=== PATIENT | female | born 1955 | race Caucasian/White ===

== ENCOUNTER 2017-06-20 08:09 | Emergency (ER) | payer BC ==
[2017-06-20] MEDS ORDERED: Ondansetron INJ* 2 MG/ML VIAL IV ONE (08:30)
[2017-06-20] MEDS ORDERED: Ketorolac INJ* 30 MG/ML 1 ML VIAL IV ONE (08:30)
[2017-06-20] MEDS ORDERED: Morphine INJ* 4 MG/ML 1 ML CARPUJECT IV ONE (08:37)
[2017-06-20] MEDS ORDERED: NS 0.9% 1000 ML* 1,000 ML IV ONE (08:57)
[2017-06-20] MEDS ORDERED: Ketorolac INJ* 30 MG/ML 1 ML VIAL ONE (09:01)
[2017-06-20 09:02] LABS: Hematocrit 41 % (35-47); Hemoglobin 13.8 g/dl (12.0-16.0); Mean Corpuscular HGB Conc 33 g/dl (31-36); Mean Corpuscular Hemoglobin 28 pg (27-31); Mean Corpuscular Volume 84 fL (80-97); Mean Platelet Volume 8 um3 (7.4-10.4); Red Blood Count 4.94 10^6/ul (4.0-5.4); Red Cell Distribution Width 13 % (10.5-15); White Blood Count 7.9 10^3/ul (3.5-10.8)
[2017-06-20] MEDS ORDERED: Ketorolac INJ* 30 MG/ML 1 ML VIAL IV PUSH ONE (09:02)
[2017-06-20 09:07] LABS: Urine Bacteria 1+ (Absent); Urine Bilirubin Negative (Negative); Urine Glucose Negative (Negative); Urine Nitrite Negative (Negative)
[2017-06-20 09:18] LABS: ALT 12 U/L (7-52); AST 14 U/L (13-39); Albumin 4.6 g/dL (3.2-5.2); Alkaline Phosphatase 79 U/L (34-104); Anion Gap 9 mmol/L (2-11); BUN/Creatinine Ratio 18.8 (8-20); Blood Urea Nitrogen 18 mg/dL (6-24); C Reactive Protein < 1.00 mg/L (< 5.00); CO2 Carbon Dioxide 25 mmol/L (22-32); Calcium 9.8 mg/dL (8.6-10.3); Chloride 103 mmol/L (101-111); Creatine Kinase 70 U/L (10-223); EGFR Non-African American 59.1 (>60); Globulin 2.7 g/dL (2-4); Glucose 115 mg/dL (70-100); Lipase 17 U/L (11.0-82.0); Potassium 3.8 mmol/L (3.5-5.0); Sodium 137 mmol/L (133-145); Total Protein 7.3 g/dL (6.4-8.9)
--- NOTE | 2017-06-20 09:23 | RAD ---
INDICATION: Abdominal pain. COMPARISON: Comparison is made with a prior CT of the abdomen and pelvis from September 26, 2013. TECHNIQUE: A CT scan of the abdomen and pelvis was performed without intravenous or oral contrast. Contiguous axial sections were obtained from the lung bases through the symphysis pubis. Images were reconstructed in the coronal and sagittal planes. FINDINGS: There is a 0.7 cm calcified nodule in the right lower lobe most consistent with old granulomatous disease. The lung bases are otherwise clear. No pleural effusion is present. The liver and spleen are normal in size. There are several fluid density lesions present within the liver measuring up to 1.9 cm in size which have increased slightly in size from the prior exam suggestive of cysts or hemangiomas. In addition, there is a larger solid appearing hypodense lesion in the medial segment of the left hepatic lobe measuring 2.2 cm in size which has increased in size from the prior study previously measuring breast 1.7 cm in size. No calcified gallstones are seen. The pancreas appears to be within normal limits. The adrenal glands appear to be within normal limits. No renal calculi are seen. There is dilatation of the right renal calyces, pelvis and ureter to the level of the ureterovesical junction.] In that region there appears to be a 0.5 cm calculus which causes moderate hydronephrosis. The aorta is normal in caliber without significant calcific plaque. No significant enlarged retroperitoneal lymph nodes are seen. The stomach, small and large bowel appear nondistended. The appendix is enlarged without inflammatory change and appears similar to the prior exam. There is mild descending and sigmoid diverticulosis without evidence for diverticulitis. The uterus is enlarged with multiple calcifications consistent with fibroids. There is a cystic lesion in the right ovary measuring 3.9 x 3.2 cm in size. There was a cystic area in the right ovary on the prior study measuring 2.6 x 2.8 cm in size. No free intraperineal air or fluid is seen. No significant focal osseous abnormality is seen. IMPRESSION: 1. 5 MM CALCULUS AT THE RIGHT URETEROVESICAL JUNCTION CAUSING MODERATE HYDRONEPHROSIS. 2. SOLID HEPATIC LESION INCREASED IN SIZE FROM THE PRIOR EXAM RECOMMEND AN MRI OF THE LIVER WITHOUT AND WITH CONTRAST FOR FURTHER EVALUATION. THERE ARE ADDITIONAL SMALLER CYSTIC LESIONS POSSIBLY REPRESENTING CYSTS OR HEMANGIOMAS. 3. ENLARGED APPENDIX WITHOUT EVIDENCE FOR INFLAMMATORY CHANGE, UNCHANGED FROM THE PREVIOUS STUDY. 4. 3.9 CM CYSTIC LESION WITHIN THE RIGHT OVARY RECOMMEND A FOLLOW-UP OUTPATIENT PELVIC ULTRASOUND FOR FURTHER EVALUATION. 5. FIBROID UTERUS.
[2017-06-20] MEDS ORDERED: Tamsulosin CAP* 0.4 MG PO ONE (10:29)
[2017-06-20 11:10] VITALS: BP 122/75
--- NOTE | 2017-06-20 18:24 | ED ---
Low Renae Alfonso, scribed for Sheng Swan MD on 06/20/17 at 0834 . Abdominal Pain/Female - HPI Summary HPI Summary: This patient is a 62 year old F presenting to [facility] accompanied by daughter with a chief complaint of right flank pain since 3 days ago. The patient rates the pain 8/10 in severity. Symptoms aggravated by movement. Symptoms alleviated by nothing. Patient reports nausea, vomiting, and dysuria. - History of Current Complaint Chief Complaint: EDAbdPain Stated Complaint: KIDNEY PAIN Time Seen by Provider: 06/20/17 08:27 Hx Obtained From: Patient Onset/Duration: Gradual Onset, Lasting Days, Still Present Timing: Constant Severity Currently: Severe Pain Intensity: 8 Pain Scale Used: 0-10 Numeric Location: Flank - R Aggravating Factor(s): Movement Alleviating Factor(s): Nothing Associated Signs and Symptoms: Positive: Urinary Symptoms - Dysuria, Nausea, Vomiting Allergies/Adverse Reactions: Allergies Allergy/AdvReac Type Severity Reaction Status Date / Time seaweed Allergy Rash Uncoded 06/20/17 08:12 PMH/Surg Hx/FS Hx/Imm Hx Endocrine/Hematology History: Denies: Hx Diabetes, Hx Thyroid Disease Cardiovascular History: Denies: Hx Hypertension Respiratory History: Denies: Hx Asthma, Hx Chronic Obstructive Pulmonary Disease (COPD) GI History: Reports: Other GI Disorders - see above Denies: Hx Ulcer Opthamlomology History: Denies: Hx Legally Blind EENT History: Denies: Hx Deafness - Surgical History Surgery Procedure, Year, and Place: uterine ablasion Infectious Disease History: No Infectious Disease History: Denies: Hx Hepatitis, Hx Human Immunodeficiency Virus (HIV), Traveled Outside the [place] in Last 30 Days - Family History Known Family History: Positive: Diabetes - Father, Other - Kidney stone father - Social History Alcohol Use: Occasionally Hx Substance Use: No Substance Use Type: Reports: None Hx Tobacco Use: No Smoking Status (MU): Never Smoked Tobacco Review of Systems Negative: Fever Positive: Abdominal Pain - Right flank, Vomiting, Nausea Positive: dysuria All Other Systems Reviewed And Are Negative: Yes Physical Exam - Summary Physical Exam Summary: VITAL SIGNS: Reviewed. GENERAL: Patient is a well-developed and nourished female who is lying in pain distress in the stretcher. Patient is not in any acute respiratory distress. HEAD AND FACE: Normocephalic and atraumatic. EYES: PERRLA, EOMI x 2, No injected conjunctiva. EARS: Hearing grossly intact. Ear canals and tympanic membranes are WNL. MOUTH: Oropharynx within normal limits. NECK: Supple, trachea is midline, no adenopathy, no JVD. CHEST: Symmetric, no tenderness at palpation LUNGS: Clear to auscultation bilaterally. No wheezing or crackles. CVS: RRR, S1 and S2 present, no murmurs or gallops appreciated. ABDOMEN: Soft. Right CVA tenderness. No signs of distention. Positive bowel sounds. No rebound no guarding, and no masses palpated. No abdominal bruit or pulsations. EXTREMITIES: FROM in all major joints, no edema, no cyanosis or clubbing. NEURO: Alert and oriented x 3. No acute neurological deficits. Speech is normal. SKIN: Dry and warm Triage Information Reviewed: Yes Vital Signs On Initial Exam: Initial Vitals Temp Pulse Resp BP Pulse Ox 97.6 F 101 16 162/96 95 06/20/17 08:12 06/20/17 08:12 06/20/17 08:12 06/20/17 08:12 06/20/17 08:12 Vital Signs Reviewed: Yes Diagnostics - Vital Signs Vital Signs Temp Pulse Resp BP Pulse Ox 06/20/17 08:12 97.6 F 101 16 162/96 95 - Laboratory Lab Results: Lab Results 06/20/17 06/20/17 06/20/17 Range/Units 08:15 08:52 08:52 WBC 7.9 (3.5-10.8) 10^3/ul RBC 4.94 (4.0-5.4) 10^6/ul Hgb 13.8 (12.0-16.0) g/dl Hct 41 (35-47) % MCV 84 (80-97) fL MCH 28 (27-31) pg MCHC 33 (31-36) g/dl RDW 13 (10.5-15) % Plt Count 386 (150-450) 10^3/ul MPV 8 (7.4-10.4) um3 Neut % (Auto) 59.2 (38-83) % Lymph % (Auto) 32.6 (25-47) % [place] % (Auto) 5.5 (1-9) % Eos % (Auto) 1.7 (0-6) % Baso % (Auto) 1.0 (0-2) % Absolute Neuts (auto) 4.7 (1.5-7.7) 10^3/ul Absolute Lymphs (auto) 2.6 (1.0-4.8) 10^3/ul Absolute Monos (auto) 0.4 (0-0.8) 10^3/ul Absolute Eos (auto) 0.1 (0-0.6) 10^3/ul Absolute Basos (auto) 0.1 (0-0.2) 10^3/ul Absolute Nucleated RBC 0 10^3/ul Nucleated RBC % 0.1 Sodium 137 (133-145) mmol/L Potassium 3.8 (3.5-5.0) mmol/L Chloride 103 (101-111) mmol/L Carbon Dioxide 25 (22-32) mmol/L Anion Gap 9 (2-11) mmol/L BUN 18 (6-24) mg/dL Creatinine 0.96 H (0.51-0.95) mg/dL Est GFR ( Amer) 76.0 (>60) Est GFR (Non-Af Amer) 59.1 (>60) BUN/Creatinine Ratio 18.8 (8-20) Glucose 115 H (70-100) mg/dL Calcium 9.8 (8.6-10.3) mg/dL Total Bilirubin 0.40 (0.2-1.0) mg/dL AST 14 (13-39) U/L ALT 12 (7-52) U/L Alkaline Phosphatase 79 (34-104) U/L Total Creatine Kinase 70 (10-223) U/L C-Reactive Protein < 1.00 (< 5.00) mg/L Total Protein 7.3 (6.4-8.9) g/dL Albumin 4.6 (3.2-5.2) g/dL Globulin 2.7 (2-4) g/dL Albumin/Globulin Ratio 1.7 (1-3) Lipase 17 (11.0-82.0) U/L Urine Color Straw Urine Appearance Clear Urine pH 6.0 (5-9) Ur Specific [place] 1.003 L (1.010-1.030) Urine Protein Negative (Negative) Urine Ketones Negative (Negative) Urine Blood 2+ H (Negative) Urine Nitrate Negative (Negative) Urine Bilirubin Negative (Negative) Urine Urobilinogen Negative (Negative) Ur Leukocyte Esterase Negative (Negative) Urine WBC (Auto) Trace(0-5/hpf) (Absent) Urine RBC (Auto) Trace(0-2/hpf) (Absent) Urine Bacteria 1+ H (Absent) Urine Glucose Negative (Negative) Result Diagrams: 06/20/17 08:52 06/20/17 08:52 Lab Statement: Any lab studies that have been ordered have been reviewed, and results considered in the medical decision making process. - CT A/P CT Interpretation Completed By: Radiologist - 1. 5 MM CALCULUS AT THE RIGHT URETEROVESICAL JUNCTION CAUSING MODERATE HYDRONEPHROSIS. 2. SOLID HEPATIC LESION INCREASED IN SIZE FROM THE PRIOR EXAM RECOMMEND AN MRI OF THE LIVER WITHOUT AND WITH CONTRAST FOR FURTHER EVALUATION. THERE ARE ADDITIONAL SMALLER CYSTIC LESIONS POSSIBLY REPRESENTING CYSTS OR HEMANGIOMAS. 3. ENLARGED APPENDIX WITHOUT EVIDENCE FOR INFLAMMATORY CHANGE, UNCHANGED FROM THE PREVIOUS STUDY. 4. 3.9 CM CYSTIC LESION WITHIN THE RIGHT OVARY RECOMMEND A FOLLOW-UP OUTPATIENT PELVIC ULTRASOUND FOR FURTHER EVALUATION. 5. FIBROID UTERUS. ED physician has reviewed this radiology report and agrees. - EKG 0946 Cardiac Rate: NL EKG Rhythm: Sinus Rhythm - 69 BPM EKG Interpretation: No ST elevation. Normal axis. Q wave in III Re-Evaluation - Re-Evaluation First Eval Re-Evaluation Time: 10:18 Change: Improved Comment: Patient is feeling better. Abdominal Pain Fem Course/Dx - Course Course Of Treatment: This patient is a 62 year old F [facility] with a chief complaint of right flank pain since 3 days ago. The patient rates the pain 8/10 in severity. Symptoms aggravated by movement. Symptoms alleviated by nothing. Patient reports nausea, vomiting, and dysuria. An EKG reveals Sinus Rhythm at [address] A/P reveals, per radiologist , 1. 5 MM CALCULUS AT THE RIGHT URETEROVESICAL JUNCTION CAUSING MODERATE HYDRONEPHROSIS. 2. SOLID HEPATIC LESION INCREASED IN SIZE FROM THE PRIOR EXAM RECOMMEND AN MRI OF THE LIVER WITHOUT AND WITH CONTRAST FOR FURTHER EVALUATION. THERE ARE ADDITIONAL SMALLER CYSTIC LESIONS POSSIBLY REPRESENTING CYSTS OR HEMANGIOMAS. 3. ENLARGED APPENDIX WITHOUT EVIDENCE FOR INFLAMMATORY CHANGE, UNCHANGED FROM THE PREVIOUS STUDY. 4. 3.9 CM CYSTIC LESION WITHIN THE RIGHT OVARY RECOMMEND A FOLLOW-UP OUTPATIENT PELVIC ULTRASOUND FOR FURTHER EVALUATION. 5. FIBROID UTERUS. ED physician has reviewed this radiology report and agrees. Test results with no significant abnormalities. In the ED course the patient was given IV fluids, toradol, and morphine for the pain. She has a kidney stone and the pain has subsided after medication. Urinalysis negative for UTI. CT also shows a liver mass and recommends outpatient MRI. I disused the importance of follow up with an MRI with a PCP with the daughter and patient. They understand and agree. Since the patient is asymptomatic, and I believe the patient may be able to pass the stone. Therefore, she will be discharged to home with pain medications and PCP and urology follow up. The patient is agreeable with this plan. The patient is hemodynamically stable, alert and oriented x3. - Diagnoses Provider Diagnoses: Renal colic, Ureteral stone Discharge - Discharge Plan Condition: Stable Disposition: HOME Prescriptions: HYDROcodone/ACETAMIN 5-325 MG* [[place] 5-325 TAB*] 1 tab PO Q6H PRN #12 tab MDD 4 PRN Reason: Pain Patient Education Materials: Renal Colic (ED), Ureteral Stones (ED) Referrals: Jona Umanzor MD [Primary Care Provider] - 3 Days Additional Instructions: RETURN TO THE EMERGENCY DEPARTMENT FOR CHANGING OR WORSENING SYMPTOMS. A LIVER MASS WAS NOTED IN THE CT SCAN AND RADIOLOGIST RECOMMENDS OUTPATIENT MRI FOLLOW UP. The documentation as recorded by the Low baires Alfonso accurately reflects the service I personally performed and the decisions made by , Sheng Swan MD.
== END 2017-06-20 11:10 | disposition home or self-care (01) ==
LOC: ED 08:09
DX: N20.1 Calculus of ureter (principal); N23 Unspecified renal colic; N13.30 Unspecified hydronephrosis; D25.9 Leiomyoma of uterus, unspecified; N83.201 Unspecified ovarian cyst, right side; R16.0 Hepatomegaly, not elsewhere classified
CPT/HCPCS: 36415; 74176; 80053; 81003; 81015; 82550; 83690; 85025; 86140; 87086; 93005; 96374; 96375; 96376; 99284; J1885; J2270; J2405